=== PATIENT | female | born 1975 | race Hispanic/Latino ===

== ENCOUNTER 2017-12-23 06:07 | Day surgery (SDC) | payer MEDICAID ==
[2017-12-22 13:23] VITALS: BP 133/91
[~2017-12-23] VITALS: Ht 152.4 cm; Wt 73.8 kg
[2017-12-23] VITALS (19 sets, daily range): BP systolic 93–125; BP diastolic 48–86
[~2017-12-23 06:07] MED LIST: AEC81 PO; CEFAZOLIN SODIUM 1 GM VIAL IVP SCH; LISI1TAB13 PO; NOVALOG 70/30 SQ; SIMV40TA5 PO
[2017-12-23] MEDS ORDERED: SODIUM CHLORIDE 0.9% 1000ML 1,000 ML IV ONE (06:43)
[2017-12-23] MEDS ORDERED: MIDAZOLAM HCL 1 MG/ML 2ML VIAL ONE (07:29)
[2017-12-23] MEDS ORDERED: PROPOFOL 10 MG/ML 20ML VIAL IV ONE (07:29)
[2017-12-23] MEDS ORDERED: FENTANYL CITRATE PF 50 MCG/1 ML 2ML VIAL ONE ×2 (07:30→08:27)
[2017-12-23] MEDS ORDERED: LIDOCAINE PF 2% 5ML ABBOJECT ONE (08:02)
[2017-12-23] MEDS ORDERED: EPHEDRINE SULFATE 50 MG/ML AMPULE ONE (08:15)
[2017-12-23] MEDS ORDERED: MEPERIDINE-PF 25 MG/ML SYG ONE ×2 (09:06→09:19)
[2018-01-26] MEDS ORDERED: SITA1TAB6 PO (11:21)
== END 2017-12-23 10:50 | disposition home or self-care (01) ==
LOC: DAH 06:07
DX: G56.01 Carpal tunnel syndrome, right upper limb (principal); S63.591A Other specified sprain of right wrist, initial encounter; X58.XXXA Exposure to other specified factors, initial encounter; Y93.9 Activity, unspecified; Y92.89 Other specified places as the place of occurrence of the external cause; Y99.9 Unspecified external cause status; E11.9 Type 2 diabetes mellitus without complications; I10 Essential (primary) hypertension; E78.00 Pure hypercholesterolemia, unspecified; Z79.899 Other long term (current) drug therapy; Z79.4 Long term (current) use of insulin; Z79.84 Long term (current) use of oral hypoglycemic drugs; Z83.3 Family history of diabetes mellitus
CPT/HCPCS: 81025; 82948; 88304; A4218; J0690; J2001; J2175; J2250; J2704; J3010; J3490; J7030

== ENCOUNTER 2018-01-27 05:51 | Day surgery (SDC) | payer MEDICAID ==
[2018-01-26 11:13] VITALS: BP 116/73
[2018-01-26 11:13] LABS: BASOPHILS % (AUTO) 0.6 % (0.0-5.0); EOSINOPHILS % (AUTO) 2.6 % (0.0-8.0); HEMATOCRIT 37.1 % (36-48); LYMPHOCYTES % (AUTO) 38.7 % (21.0-51.0); MEAN CORPUSCULAR HEMOGLOBIN 27.9 pg (27.0-33.0); MEAN CORPUSCULAR HGB CONC 35.2 g/dL (32.0-36.0); MEAN CORPUSCULAR VOLUME 79.1 fL (79-99); NEUTROPHILS % (AUTO) 51.1 % (40.0-77.0); PLATELET COUNT (AUTO) 346 K/uL (130-400); RED BLOOD CELL COUNT(AUTO) 4.69 MIL/uL (4.00-5.50); RED CELL DISTRIBUTION WIDTH 15.6 % (11.0-15.5); WHITE BLOOD COUNT (AUTO) 5.3 K/uL (4.8-10.8)
[2018-01-26 11:27] LABS: ALBUMIN 3.8 g/dL (3.5-5.0); BILIRUBIN,TOTAL 0.5 mg/dL (0.2-1.0); CREATININE 0.7 mg/dL (0.5-1.5); POTASSIUM 3.7 mmol/L (3.5-5.1)
[2018-01-26 11:37] LABS: INR 0.93 (0.85-1.15); PARTIAL THROMBOPLASTIN TIME 27.3 SEC (26.3-35.5); PROTHROMBIN TIME 9.8 SEC (9.6-11.6)
[2018-01-26 11:49] LABS: APPEARANCE,URINE Clear (CLEAR); BILIRUBIN,URINE Negative (NEGATIVE); COLOR,URINE Yellow (YELLOW); GLUCOSE, URINE (UA) Negative (NEGATIVE); KETONES,URINE Negative (NEGATIVE); LEUKOCYTE ESTERASE ,URINE Negative (NEGATIVE); NITRATE,URINE Negative (NEGATIVE); OCCULT BLOOD,URINE Negative (NEGATIVE); PH,URINE 6.5 (5.0-8.0); PROTEIN,URINE Negative (NEGATIVE); UROBILINOGEN,URINE 0.2 mg/dL (0.2-1.0)
[~2018-01-27] VITALS: Ht 156.2 cm; Wt 73.8 kg
[2018-01-27] VITALS (17 sets, daily range): BP systolic 90–115; BP diastolic 55–71
[2018-01-27] MEDS: CEFAZOLIN SODIUM 1 GM VIAL IVP SCH ×2 (05:00→07:25)
[~2018-01-27 05:51] MED LIST changes: -CEFAZOLIN SODIUM 1 GM VIAL IVP SCH; +SITA1TAB6 PO
[2018-01-27] MEDS ORDERED: SODIUM CHLORIDE 0.9% 1000ML 1,000 ML IV ONE (06:10)
[2018-01-27] MEDS ORDERED: PROPOFOL 10 MG/ML 20ML VIAL IV ONE (07:18)
[2018-01-27] MEDS ORDERED: GLYCOPYRROLATE 0.2 MG/ML 5 ML VIAL ONE (07:18)
[2018-01-27] MEDS ORDERED: LIDOCAINE PF 2% 5ML ABBOJECT ONE (07:18)
[2018-01-27] MEDS ORDERED: FENTANYL CITRATE PF 50 MCG/1 ML 2ML VIAL ONE (07:18)
[2018-01-27] MEDS ORDERED: MIDAZOLAM HCL 1 MG/ML 2ML VIAL ONE (07:18)
[2018-01-27] MEDS ORDERED: DEXAMETHASONE SOD PHOSPHATE 10MG/ML 1ML VIAL ONE (07:18)
[2018-01-27] MEDS ORDERED: ONDANSETRON HCL 4 MG/2 ML VIAL ONE (07:18)
[2018-01-27] MEDS ORDERED: MEPERIDINE-PF 50 MG/ML SYG ONE ×2 (08:49→09:01)
[2018-01-27] MEDS ORDERED: KETOROLAC TROMETHAMINE 30MG/ML ONE (09:09)
== END 2018-01-27 10:25 | disposition home or self-care (01) ==
LOC: DAH 05:51
DX: M65.842 Other synovitis and tenosynovitis, left hand (principal); G56.02 Carpal tunnel syndrome, left upper limb; I10 Essential (primary) hypertension; Z79.899 Other long term (current) drug therapy; E11.9 Type 2 diabetes mellitus without complications; Z79.4 Long term (current) use of insulin; Z79.84 Long term (current) use of oral hypoglycemic drugs; E66.9 Obesity, unspecified
CPT/HCPCS: 25115; 36415; 64721; 71045; 80053; 81003; 82948 ×2; 85025; 85610; 85730; 88305; 93005; A4218; A4649; A4930; A6223; A6446; J0690; J1100; J1885; J2001; J2175 ×2; J2250; J2405; J2704; J3010; J3490; J7030; Q4051

== ENCOUNTER 2018-08-18 09:34 | Day surgery (SDC) | payer MEDICAID ==
[2018-08-17 11:39] VITALS: BP 118/61
[~2018-08-18] VITALS: Ht 153.7 cm; Wt 72.3 kg
[2018-08-18] VITALS (13 sets, daily range): BP systolic 94–121; BP diastolic 45–73
[2018-08-18] MEDS: CEFAZOLIN SODIUM 1 GM VIAL IVP SCH ×2 (05:00→13:18)
[~2018-08-18 09:34] MED LIST changes: +INSU100C6 SQ; +LISI-613 PO; -LISI1TAB13 PO; -NOVALOG 70/30 SQ; +SERT50TA PO
[2018-08-18] MEDS ORDERED: SODIUM CHLORIDE 0.9% 1000ML 1,000 ML IV ONE (10:45)
[2018-08-18] MEDS ORDERED: LIDOCAINE PF 2% 5ML ABBOJECT ONE (13:02)
[2018-08-18] MEDS ORDERED: PROPOFOL 10 MG/ML 20ML VIAL IV ONE ×2 (13:03→13:20)
[2018-08-18] MEDS ORDERED: MIDAZOLAM HCL 1 MG/ML 2ML VIAL ONE (13:03)
[2018-08-18] MEDS ORDERED: DURAMORPH PF1 MG/ML 10ML AMP IV ONE (13:04)
[2018-08-18] MEDS ORDERED: ESMOLOL HCL 10 MG/ML 10 ML VIAL ONE (13:27)
[2018-08-18] MEDS ORDERED: KETOROLAC TROMETHAMINE 30MG/ML ONE (14:21)
== END 2018-08-18 15:30 | disposition home or self-care (01) ==
LOC: DAH 09:34 → SUH 09:34
DX: S63.601A Unspecified sprain of right thumb, initial encounter (principal); X58.XXXA Exposure to other specified factors, initial encounter; Y93.9 Activity, unspecified; Y92.89 Other specified places as the place of occurrence of the external cause; Y99.9 Unspecified external cause status; I10 Essential (primary) hypertension; E78.00 Pure hypercholesterolemia, unspecified; F41.9 Anxiety disorder, unspecified; Z79.899 Other long term (current) drug therapy; Z98.890 Other specified postprocedural states; Z79.4 Long term (current) use of insulin; F17.210 Nicotine dependence, cigarettes, uncomplicated; Z68.30 Body mass index [BMI] 30.0-30.9, adult; E66.9 Obesity, unspecified; E11.3299 Type 2 diabetes mellitus with mild nonproliferative diabetic retinopathy without macular edema, unspecified eye; Z83.3 Family history of diabetes mellitus; Z82.49 Family history of ischemic heart disease and other diseases of the circulatory system
CPT/HCPCS: 26160; 82948 ×2; 88304; A4649; A6223; A6446; J0690; J1885; J2001; J2250; J2274; J2704 ×2; J3490; J7030; J7120

== ENCOUNTER 2018-11-14 20:54 | Emergency (ER) | payer MEDICAID ==
[2018-11-14 21:42] LABS: BASOPHILS % (AUTO) 0.8 % (0.0-5.0); EOSINOPHILS % (AUTO) 3.3 % (0.0-8.0); HEMATOCRIT 31.5 % (36-48); LYMPHOCYTES % (AUTO) 38.5 % (21.0-51.0); MEAN CORPUSCULAR HEMOGLOBIN 23.5 pg (27.0-33.0); MEAN CORPUSCULAR HGB CONC 31.8 g/dL (32.0-36.0); MEAN CORPUSCULAR VOLUME 74.1 fL (79-99); NEUTROPHILS % (AUTO) 51.4 % (40.0-77.0); PLATELET COUNT (AUTO) 298 K/uL (130-400); RED BLOOD CELL COUNT(AUTO) 4.26 MIL/uL (4.00-5.50); RED CELL DISTRIBUTION WIDTH 16.3 % (11.0-15.5)
[2018-11-14 21:45] LABS: APPEARANCE,URINE CLEAR (CLEAR); BILIRUBIN,URINE NEGATIVE (NEGATIVE); COLOR,URINE YELLOW (YELLOW); GLUCOSE, URINE (UA) NEGATIVE (NEGATIVE); KETONES,URINE NEGATIVE (NEGATIVE); LEUKOCYTE ESTERASE ,URINE NEGATIVE (NEGATIVE); NITRATE,URINE NEGATIVE (NEGATIVE); OCCULT BLOOD,URINE NEGATIVE (NEGATIVE); PH,URINE 5.5 (5.0-8.0); PROTEIN,URINE NEGATIVE (NEGATIVE); UROBILINOGEN,URINE 0.2 mg/dL (0.2-1.0)
[2018-11-14] MEDS ORDERED: DEXAMETHASONE SOD PHOSPHATE 10MG/ML 1ML VIAL ONE (21:54)
[2018-11-14] MEDS ORDERED: KETOROLAC TROMETHAMINE 15MG/ML ONE (21:54)
[2018-11-14] MEDS ORDERED: DIAZEPAM 5 MG TABLET ONE (21:54)
[2018-11-14 21:57] LABS: CREATININE 0.7 mg/dL (0.5-1.5); POTASSIUM 3.7 mmol/L (3.5-5.1)
[2018-11-14 22:01] LABS: ALBUMIN 3.5 g/dL (3.5-5.0); BILIRUBIN,TOTAL 0.4 mg/dL (0.2-1.0); TOTAL PROTEIN, SERUM 6.9 g/dL (6.0-8.3)
[2018-11-14] MEDS ORDERED: 0.9% SODIUM CHLORIDE 1000 ML IV BAG IV ONE (22:05)
== END 2018-11-14 23:18 | disposition home or self-care (01) ==
LOC: EDH 20:54
DX: G44.209 Tension-type headache, unspecified, not intractable (principal); I10 Essential (primary) hypertension; E11.9 Type 2 diabetes mellitus without complications; Z87.891 Personal history of nicotine dependence
CPT/HCPCS: 36415; 80053; 81003; 85025; 96374; 96375; 99283; J1100; J1885; J7030

== ENCOUNTER 2019-02-02 06:09 | Day surgery (SDC) | payer MEDICAID ==
[2019-02-01 12:00] VITALS: BP 135/78
[2019-02-01 12:39] LABS: BASOPHILS % (AUTO) 0.5 % (0.0-5.0); EOSINOPHILS % (AUTO) 2.8 % (0.0-8.0); HEMATOCRIT 37.1 % (36-48); LYMPHOCYTES % (AUTO) 47.5 % (21.0-51.0); MEAN CORPUSCULAR HEMOGLOBIN 26.7 pg (27.0-33.0); MEAN CORPUSCULAR HGB CONC 33.4 g/dL (32.0-36.0); MONOCYTES % (AUTO) 7.1 % (3.0-13.0); NEUTROPHILS % (AUTO) 42.1 % (40.0-77.0); PLATELET COUNT (AUTO) 265 K/uL (130-400); RED BLOOD CELL COUNT(AUTO) 4.64 MIL/uL (4.00-5.50); RED CELL DISTRIBUTION WIDTH 20.5 % (11.0-15.5); WHITE BLOOD COUNT (AUTO) 3.9 K/uL (4.8-10.8)
[2019-02-01 12:41] LABS: APPEARANCE,URINE Clear (CLEAR); BILIRUBIN,URINE Negative (NEGATIVE); COLOR,URINE Yellow (YELLOW); GLUCOSE, URINE (UA) Negative (NEGATIVE); KETONES,URINE Negative (NEGATIVE); LEUKOCYTE ESTERASE ,URINE Negative (NEGATIVE); NITRATE,URINE Negative (NEGATIVE); OCCULT BLOOD,URINE Trace (NEGATIVE); PROTEIN,URINE Negative (NEGATIVE); UROBILINOGEN,URINE 0.2 mg/dL (0.2-1.0)
[2019-02-01 13:15] LABS: BACTERIA,URINE Rare /HPF (None Seen); RBC,URINE 0-1 /HPF (0-1); SQUAMOUS EPITHELIAL CELL,UR Rare /HPF (0-2); WBC,URINE 0-1 /HPF (0-1)
[2019-02-01 14:31] LABS: CREATININE 0.6 mg/dL (0.5-1.5); POTASSIUM 4.1 mmol/L (3.5-5.1)
[~2019-02-02] VITALS: Ht 154.9 cm; Wt 72.5 kg
[2019-02-02] VITALS (10 sets, daily range): BP systolic 104–140; BP diastolic 57–89
[~2019-02-02 06:09] MED LIST changes: -AEC81 PO; -INSU100C6 SQ
[2019-02-02] MEDS: CEFAZOLIN SODIUM 1 GM VIAL IVP SCH ×2 (07:00→08:00)
[2019-02-02] MEDS ORDERED: SODIUM CHLORIDE 0.9% 1000ML 1,000 ML IV ONE (07:18)
[2019-02-02] MEDS ORDERED: PROPOFOL 10 MG/ML 20ML VIAL IV ONE (07:27)
[2019-02-02] MEDS ORDERED: MIDAZOLAM HCL 1 MG/ML 2ML VIAL ONE (07:27)
[2019-02-02] MEDS ORDERED: FENTANYL CITRATE PF 50 MCG/1 ML 2ML VIAL ONE (07:27)
[2019-02-02] MEDS ORDERED: LIDOCAINE PF 2% 5ML ABBOJECT ONE (07:32)
[2019-02-02] MEDS ORDERED: DEXAMETHASONE SOD PHOSPHATE 10MG/ML 1ML VIAL ONE (07:56)
[2019-02-02] MEDS ORDERED: ONDANSETRON HCL 4 MG/2 ML VIAL ONE (07:56)
[2019-02-02] MEDS ORDERED: KETOROLAC TROMETHAMINE 30MG/ML ONE (07:57)
--- NOTE | 2019-02-02 08:58 | NUR ---
RECEIVE PT RECEIVED FROM PACU VIA STRETCHER AWAKE ALERT ORIENTED X3. PT STABLE, NO COMPLAINTS EXCEPT STATED SHE HAS JUST VERY LITTLE PAIN TO SURGICAL SITE. KEPT LEFT HAND ELEVATED. DRESSING TO LEFT HAND DRY AND INTACT, CAPILLARY REFILLS BRISK, ABLE TO MOVE FINGERS. CALL PARKER WITHIN REACH, WILL CALL TO COME IN TO ROOM. WILL CONTINUE TO MONITOR PT.
--- NOTE | 2019-02-02 09:40 | NUR ---
DISCHARGE PT DISCHARGED VIA WHEELCHAIR WITH . PT STABLE. NO COMPLAINTS MADE. DRESSING REMAINED DRY AND INTACT, NO BLEEDING NOTED. VOIDED PRIOR TO DISCHARGE. DISCHARGE INSTRUCTIONS GIVEN TO AND PT, VERBALIZED UNDERSTANDING.
== END 2019-02-02 09:40 | disposition home or self-care (01) ==
LOC: DAH 06:09
DX: M65.842 Other synovitis and tenosynovitis, left hand (principal); I10 Essential (primary) hypertension; F32.9 Major depressive disorder, single episode, unspecified; F41.9 Anxiety disorder, unspecified; E11.9 Type 2 diabetes mellitus without complications; E78.5 Hyperlipidemia, unspecified; Z79.899 Other long term (current) drug therapy
CPT/HCPCS: 26160; 36415; 80048; 81001; 82947; 82948 ×2; 84703; 85025; 88304; A4606; A4649; J0690; J1100; J1885; J2001; J2250; J2405; J2704; J3010; J7030

== ENCOUNTER 2022-05-02 08:55 | Emergency (ER) | payer MEDICAID, OTHER ==
[~2022-05-02] VITALS: Ht 152.4 cm; Wt 68.9 kg
[~2022-05-02 08:55] MED LIST changes: -LISI-613 PO; +LISI20TA24 PO; +SIMV-46 PO; -SIMV40TA5 PO
[2022-05-02] MEDS ORDERED: PANTOPRAZOLE 40 MG/VIAL IVP SCH (09:00)
[2022-05-02 09:12] LABS: BASOPHILS % (AUTO) 0.2 % (0.0-5.0); EOSINOPHILS % (AUTO) 4.9 % (0.0-8.0); HEMATOCRIT 38.7 % (36-48); LYMPHOCYTES % (AUTO) 34.3 % (21.0-51.0); MEAN CORPUSCULAR HEMOGLOBIN 28.3 pg (27.0-33.0); MEAN CORPUSCULAR HGB CONC 34.1 g/dL (32.0-36.0); MEAN CORPUSCULAR VOLUME 82.9 fL (79-99); MONOCYTES % (AUTO) 8.5 % (3.0-13.0); NEUTROPHILS % (AUTO) 51.6 % (40.0-77.0); PLATELET COUNT (AUTO) 257 K/uL (130-400); RED BLOOD CELL COUNT(AUTO) 4.67 MIL/uL (4.00-5.50); WHITE BLOOD COUNT (AUTO) 4.3 K/uL (4.8-10.8)
[2022-05-02 09:18] VITALS: BP 141/83
[2022-05-02 09:28] LABS: CREATININE 0.7 mg/dL (0.5-1.5); POTASSIUM 3.8 mmol/L (3.5-5.1)
[2022-05-02 09:36] LABS: ALBUMIN 3.5 g/dL (3.5-5.0); TOTAL PROTEIN, SERUM 7.2 g/dL (6.0-8.3)
[2022-05-02] MEDS ORDERED: PANT40TA55 PO (09:48)
== END 2022-05-02 09:57 | disposition home or self-care (01) ==
LOC: EDH 08:55
DX: K21.9 Gastro-esophageal reflux disease without esophagitis (principal); E11.9 Type 2 diabetes mellitus without complications; E78.00 Pure hypercholesterolemia, unspecified; F32.A Depression, unspecified; F41.9 Anxiety disorder, unspecified; I10 Essential (primary) hypertension; Z79.84 Long term (current) use of oral hypoglycemic drugs; Z79.899 Other long term (current) drug therapy
CPT/HCPCS: 99285; 96374; 71045; 84484; 80053; 85025; 36415; 93005; C9113

== ENCOUNTER → 2024-03-16 | Emergency (ER) | payer OTHER, BC ==
[~2024-03-16] VITALS: Ht 152.4 cm; Wt 71.2 kg
[~2024-03-16] MED LIST changes: +CYCL10TA16 PO; +PANT40TA55 PO
[2024-03-16] MEDS: ACETAMINOPHEN 500 MG TABLET PO ONE (21:07)
[2024-03-16 21:10] VITALS: BP 133/80; PULSE 87; RESP 20; O2SAT 99
[2024-03-16 21:25] LABS: APPEARANCE,URINE CLEAR (CLEAR); BILIRUBIN,URINE NEGATIVE (NEGATIVE); COLOR,URINE COLORLESS (YELLOW); GLUCOSE, URINE (UA) >=1000 mg/dL (NEGATIVE); KETONES,URINE 5 mg/dL (NEGATIVE); LEUKOCYTE ESTERASE ,URINE NEGATIVE Leu/uL (NEGATIVE); NITRATE,URINE NEGATIVE (NEGATIVE); OCCULT BLOOD,URINE NEGATIVE (NEGATIVE); PROTEIN,URINE NEGATIVE (NEGATIVE); UROBILINOGEN,URINE 0.2 mg/dL (0.2-1.0)
[2024-03-16 21:29] LABS: ADD UA MICROSCOPIC YES
[2024-03-16 21:30] LABS: HCG,QUALITATIVE URINE NEGATIVE (NEGATIVE)
[2024-03-16 21:31] LABS: BACTERIA,URINE RARE /HPF (None Seen); RBC,URINE 0-1 /HPF (0-1); SQUAMOUS EPITHELIAL CELL,UR RARE /HPF (0-2); WBC,URINE 0-1 /HPF (0-1)
== END ==
LOC: EDH 19:07
DX: S40.011A Contusion of right shoulder, initial encounter (principal); F41.9 Anxiety disorder, unspecified; F32.A Depression, unspecified; E11.9 Type 2 diabetes mellitus without complications; E78.00 Pure hypercholesterolemia, unspecified; I10 Essential (primary) hypertension; Z79.899 Other long term (current) drug therapy; V49.59XA Passenger injured in collision with other motor vehicles in traffic accident, initial encounter; Y93.89 Activity, other specified; Y92.89 Other specified places as the place of occurrence of the external cause; Y99.8 Other external cause status
CPT/HCPCS: 73030; 81001; 81025